=== PATIENT | female | born 1950 | race Caucasian/White ===

== ENCOUNTER 2023-07-31 20:26 | Emergency (ER) | payer MEDICARE, BC ==
[~2023-07-31] VITALS: Ht 160 cm; Wt 70.3 kg
[2023-07-31 21:40] LABS: BASOPHILS # (AUTO) 0.1 K/UL (0.0-0.2); BASOPHILS % (AUTO) 1.4 % (0.0-2.0); EOSINOPHILS # (AUTO) 0.4 K/uL (0.0-0.7); EOSINOPHILS % (AUTO) 6.6 % (0.0-7.0); HEMATOCRIT 37.4 % (31.2-41.9); HEMOGLOBIN 12.4 g/dL (10.9-14.3); LYMPHOCYTES % (AUTO) 32.2 % (20.5-51.5); MEAN CORPUSCULAR HGB CONC 33 g/dL (32.3-35.6); MEAN CORPUSCULAR VOLUME 90.3 fL (75.5-95.3); MONOCYTES # (AUTO) 0.6 K/uL (0.1-1.30); MONOCYTES % (AUTO) 9.7 % (0.0-11.0); NEUTROPHILS # (AUTO) 3.2 K/uL (1.8-8.9); NEUTROPHILS % (AUTO) 50.1 % (38.5-71.5); PLATELET COUNT (AUTO) 191 K/uL (179-408); RED BLOOD CELL COUNT(AUTO) 4.14 MIL/uL (3.63-4.92); RED CELL DISTRIBUTION WIDTH 14.5 % (12.3-17.7); WHITE BLOOD COUNT (AUTO) 6.3 K/uL (3.8-11.8)
[2023-07-31 21:48] LABS: CREATININE 0.8 mg/dL (0.6-1.3); POTASSIUM 4.1 mmol/L (3.5-5.1)
[2023-07-31 21:52] LABS: DIFFERENTIAL COMMENT 1
[2023-07-31 22:00] LABS: ALBUMIN 3.5 g/dL (3.4-5.0); BILIRUBIN,TOTAL 0.3 mg/dL (0.2-1.0); TOTAL PROTEIN, SERUM 7.4 g/dL (6.4-8.2)
[2023-07-31 22:13] LABS: CALCIUM 9.2 mg/dL (8.5-10.1)
[2023-07-31] MEDS ORDERED: IOHEXOL 350 100 ML INFUS..BTL ONE (23:12)
[2023-07-31] MEDS ORDERED: SWABABLE VALVE TRANSFER SET EA MC ONE ×2 (23:12)
[2023-07-31] MEDS ORDERED: IV NORMAL SALINE 250 ML IV ONE (23:12)
[2023-08-01] MEDS ORDERED: ALBU18HF2 INH (00:11)
[2023-08-01 00:26] VITALS: BP 167/89; O2SAT 96
== END 2023-08-01 00:20 | disposition home or self-care (01) ==
LOC: ER 20:30
DX: R06.09 Other forms of dyspnea (principal); I10 Essential (primary) hypertension; Z87.891 Personal history of nicotine dependence; Z79.899 Other long term (current) drug therapy
CPT/HCPCS: 99285; 71275; 71045; 80053; 83880; 85025; 85379; 84484; 36415; 93005; Q9967; A4606; A4663